=== PATIENT | male | born 1975 | race Caucasian/White ===

== ENCOUNTER 2022-01-17 01:36 | Emergency (ER) | payer OTHER ==
[2022-01-17] MEDS ORDERED: ACETAMINOPHEN 500 MG TABLET (FP) PO ONE (02:42)
[2022-01-17] MEDS ORDERED: ACETAMINOPHEN 325 MG TABLET (FP) ONE (02:51)
[2022-01-17 03:12] VITALS: BP 142/81; PULSE 70; TEMP 98.1; BMI 17.6
== END 2022-01-17 05:00 | disposition home or self-care (01) ==
LOC: JER 01:36
DX: H92.01 Otalgia, right ear (principal)
CPT/HCPCS: 70450-TC; 70480-TC; 99284-25